=== PATIENT | female | born 1985 | race Caucasian/White ===

== ENCOUNTER → 2018-03-28 | Outpatient (CLI) | payer OTHER ==
[~2018-03-28] MED LIST: IBUP-1222 PO; LIDOCAINE-MPF 1%, 5ML ONE
== END | disposition home or self-care (01) ==
LOC: RAD 13:28
PROVIDERS: ATTEND Surgery
DX: E04.1 Nontoxic single thyroid nodule (principal)
CPT/HCPCS: 10022; 76942; 88172; 88173

== ENCOUNTER 2019-03-19 22:43 | Outpatient (CLI) | payer OTHER ==
[~2019-03-19] VITALS: Ht 165.1 cm; Wt 112.7 kg
[~2019-03-19 22:43] MED LIST changes: -LIDOCAINE-MPF 1%, 5ML ONE
[2019-03-19 23:12] VITALS: BP 114/74
[2019-03-19] MEDS ORDERED: PREN1TAB60 PO (23:59)
== END 2019-03-20 00:05 | disposition home or self-care (01) ==
LOC: LDOP 22:43
PROVIDERS: ATTEND Obstetrics & Gynecology
DX: Z34.93 Encounter for supervision of normal pregnancy, unspecified, third trimester (principal); Z3A.38 38 weeks gestation of pregnancy
CPT/HCPCS: 59025; 99211; G0463

== ENCOUNTER 2019-03-22 15:07 | Outpatient (CLI) | payer OTHER ==
[~2019-03-22] VITALS: Ht 165.1 cm; Wt 112.7 kg
[~2019-03-22 15:07] MED LIST changes: +PREN1TAB60 PO
[2019-03-22 15:54] VITALS: BP 120/76
== END 2019-03-22 17:33 | disposition home or self-care (01) ==
LOC: LDOP 15:07
PROVIDERS: ATTEND Obstetrics & Gynecology
DX: O26.893 Other specified pregnancy related conditions, third trimester (principal); R10.9 Unspecified abdominal pain; Z3A.38 38 weeks gestation of pregnancy
CPT/HCPCS: 59025; 99211; G0463